=== PATIENT | female | born 1985 | race Caucasian/White ===

== ENCOUNTER 2024-06-11 10:03 | Emergency (ER) | payer MEDICAID ==
[~2024-06-11] VITALS: Ht 152.4 cm; Wt 96.0 kg
[2024-06-11 10:08] VITALS: O2SAT 100
[2024-06-11 11:03] LABS: HCG SCREEN NEGATIVE
[2024-06-11 11:12] LABS: EOSINOPHILS % 0.6 % (0.0-5.0); HEMATOCRIT. 31.2 % (36.0-48.0); HEMOGLOBIN. 9.4 g/dL (12.0-16.0); LYMPHOCYTES % 17.7 % (20.0-50.0); MEAN CORPUSCULAR HEMOGLOBIN 26.9 pg (28.0-32.0); MEAN CORPUSCULAR HGB CONC 30.1 g/dL (31.0-37.0); MEAN CORPUSCULAR VOLUME 89.2 fL (81.0-99.0); MEAN PLATELET VOLUME 9.6 fl (7.4-10.4); MONOCYTES % 9.3 % (2.0-8.0); NEUTROPHILS % 71.4 % (40.0-76.0); PLATELET 290 x1000/uL (130-400); RED BLOOD CELL COUNT 3.49 mill/uL (4.2-5.4); RED CELL DISTRIBUTION WIDTH 20.2 % (11.6-14.6); WHITE BLOOD COUNT 8.6 x1000/uL (4.5-11.0)
[2024-06-11 11:27] LABS: CHLORIDE 95 mEq/L (98-107); POTASSIUM 3.5 mEq/L (3.5-5.1); SODIUM 129 mEq/L (136-145)
[2024-06-11 11:29] LABS: CALCIUM 8.3 mg/dL (8.7-10.4); CARBON DIOXIDE 18 mEq/L (21-32)
[2024-06-11 11:34] LABS: CREATININE 1.1 mg/dL (0.6-1.0); UREA NITROGEN BLOOD 7 mg/dL (9-23)
[2024-06-11 11:35] LABS: ALANINE AMINOTRANSFERASE 155 IU/L (10-49)
[2024-06-11 11:36] LABS: ALBUMIN 3.5 g/dL (3.2-4.8); ASPARTATE AMINOTRANSFERASE 93 IU/L (<34); BILIRUBIN TOTAL 0.2 mg/dL (0.1-1.0); PROTEIN TOTAL 6.8 g/dL (6.0-8.3)
[2024-06-11 11:46] LABS: BILIRUBIN DIRECT < 0.1 mg/dL (<=3.0)
[2024-06-11 11:48] LABS: GLUCOSE 766 mg/dL (70-105)
[2024-06-11] MEDS ORDERED: LACTATED RINGERS 1,000 ML IV SCH (12:00)
[2024-06-11] MEDS ORDERED: INSULIN REGULAR (HUMULIN R) 1000UNITS/10ML VIAL IV ONE (13:15)
[2024-06-11] MEDS: TRANEXAMIC ACID 1,000MG/10ML IV ONE (14:15)
[2024-06-11] MEDS: INSULIN REGULAR (HUMULIN R) 1000UNITS/10ML VIAL IV NR (14:20)
[2024-06-11 17:02] VITALS: BP 127/73; PULSE 87; RESP 15; TEMP 36.55848; O2SAT 100
== END 2024-06-11 17:03 | disposition home or self-care (01) ==
LOC: ER 10:03
DX: N93.9 Abnormal uterine and vaginal bleeding, unspecified (principal); R73.9 Hyperglycemia, unspecified; Z88.0 Allergy status to penicillin; Z98.890 Other specified postprocedural states
CPT/HCPCS: 80076; 80048; 82010; 84703; 85025; 86850; 86900; 86901; 36415; 76705; 76830; 76856; 96374; 96375; 99285; J1815; Z7610